=== PATIENT | male | born 1945 | race Caucasian/White ===

== ENCOUNTER 2018-10-07 06:36 | Emergency (ER) | payer MEDICARE ==
[2018-10-07 06:44] VITALS: BMI 25.7
--- NOTE | 2018-10-07 07:13 | ED PDOC ---
HPI: CCC, URI, Sore Throat Time Seen by Provider: 10/07/18 06:59 Chief Complaint (Nursing): Cough, Cold, Congestion History Per: Patient Onset/Duration Of Symptoms: Other (4 weeks) Current Symptoms Are (Timing): Still Present Location Of Pain: None Sick Contacts (Context): None Associated Symptoms: Cough, Sputum. denies: Fever Severity: Moderate Additional Complaint(s): Cough productive yellow sputum x 4 weeks. Denies fever or SOB. Denies chest pain. Past Medical History Vital Signs: Last Vital Signs Temp 97.6 F 10/07/18 06:44 Pulse 86 10/07/18 06:44 Resp 18 10/07/18 06:44 BP 158/82 H 10/07/18 06:44 Pulse Ox 98 10/07/18 06:44 Primary Care Provider: Jag Jimenez - Medical History PMH: Diabetes, HTN, Hypercholesterolemia Denies: Chronic Kidney Disease - Family History Family History: States: Unknown Family Hx - Home Medications Home Medications: Ambulatory Orders Medication Instructions Recorded Hydrochlorothiazide/Losartan 1 tab PO DAILY 04/01/14 [Losartan 100MG/HCTZ 25MG] Metformin HCl [Metformin] 1 tab PO DAILY 04/01/14 Metoprolol Succinate 1 tab PO DAILY 04/01/14 Rosuvastatin Calcium [Crestor] 1 tab PO DAILY 04/01/14 Sitagliptin Phosphate [Januvia] 1 tab PO DAILY 04/01/14 Azithromycin [Zithromax] 250 mg PO DAILY #6 tab 10/07/18 Benzonatate [Tessalon Perle] 100 mg PO Q8 #12 capsule 10/07/18 - Allergies Allergies/Adverse Reactions: Allergies Allergy/AdvReac Type Severity Reaction Status Date / Time No Known Allergies Allergy Verified 02/05/13 09:29 Review of Systems ROS Statement: Except As Marked, All Systems Reviewed And Found Negative Respiratory: Positive for: Cough, Sputum. Negative for: Shortness of Breath Physical Exam - Reviewed Nursing Documentation Reviewed: Yes Vital Signs Reviewed: Yes - Physical Exam Appears: Positive for: Non-toxic, No Acute Distress Head Exam: Positive for: ATRAUMATIC, NORMAL INSPECTION, NORMOCEPHALIC Skin: Positive for: Normal Color, Warm, DRY Eye Exam: Positive for: EOMI, Normal appearance, PERRL ENT: Positive for: Normal ENT Inspection Neck: Positive for: Normal, Painless ROM Cardiovascular/Chest: Positive for: Regular Rate, Rhythm Respiratory: Positive for: Rhonchi. Negative for: Wheezing, Respiratory Distress Gastrointestinal/Abdominal: Positive for: Normal Exam, Soft Back: Positive for: Normal Inspection Extremity: Positive for: Normal ROM Neurological/Psych: Positive for: Awake, Alert, Normal Tone - Laboratory Results Result Diagrams: 10/07/18 09:09 - ECG O2 Sat by Pulse Oximetry: 98 Disposition - Clinical Impression Clinical Impression: Bronchitis - Patient ED Disposition Is Patient to be Admitted: No Counseled Patient/Family Regarding: Studies Performed, Diagnosis, Need For Followup, Rx Given - Disposition Referrals: [facility] [Outside] Disposition: Routine/Home Disposition Time: 09:26 Condition: FAIR Prescriptions: Azithromycin [Zithromax] 250 mg PO DAILY #6 tab Benzonatate [Tessalon Perle] 100 mg PO Q8 #12 capsule Instructions: Acute Bronchitis Forms: [facility] (Divehi) Print Language: LIBYAN
[2018-10-07 09:14] LABS: VENOUS BLOOD GAS BASE EXCESS 7.4 mmol/L (0.0-2.0); VENOUS BLOOD GAS PCO2 64 mmHg (40-60); VENOUS BLOOD GAS PO2 15 mm/Hg (30-55); VENOUS BLOOD PH 7.35 (7.32-7.43)
[2018-10-07 09:14] LABS: BASO # 0.1 K/uL (0.0-0.2); BASO % 0.7 % (0.0-2.0); EOS # 0.2 K/uL (0.0-0.7); EOS % 2.8 % (0.0-4.0); LYMPH # 1.4 K/uL (1.0-4.3); LYMPH % 19.3 % (20.0-40.0); MEAN CELL VOLUME 89.4 fl (80.0-94.0); MEAN CORPUSCULAR HEMOGLOBIN 29.8 pg (27.0-31.0); MEAN CORPUSCULAR HGB CONC 33.3 g/dL (33.0-37.0); MEAN PLATELET VOLUME 8.2 fl (7.2-11.7); MONO # 0.6 K/uL (0.0-0.8); MONO % 8.1 % (0.0-10.0); NEUT # 5.2 K/uL (1.8-7.0); NEUT % 69.1 % (50.0-75.0); NRBC % 0.1 % (0.0-0.0); RBC 3.7 Mil/uL (4.40-5.90); WHITE BLOOD COUNT 7.5 K/uL (4.8-10.8)
[2018-10-07 09:52] VITALS: BP 152/76; PULSE 78; RESP 16; TEMP 98.1; O2SAT 99
--- NOTE | 2018-10-07 11:08 | RAD ---
Date of service: 10/07/2018 HISTORY: cough COMPARISON: 10/31/2013. TECHNIQUE: Chest PA and lateral views FINDINGS: LUNGS: No active pulmonary disease. PLEURA: No significant pleural effusion identified. No pneumothorax apparent. CARDIOVASCULAR: No aortic atherosclerotic calcification present. Pulmonary vascular congestion, moderate OSSEOUS STRUCTURES: No significant abnormalities. VISUALIZED UPPER ABDOMEN: Normal. OTHER FINDINGS: None. IMPRESSION: Moderate pulmonary vascular congestion. No focal/discrete infiltrates.
== END 2018-10-07 09:40 | disposition home or self-care (01) ==
LOC: H.ER 06:36
DX: J40 Bronchitis, not specified as acute or chronic (principal)